=== PATIENT | female | born 1935 | race African-American/Black ===

== ENCOUNTER 2019-07-21 17:57 | Emergency (ER) | payer OTHER ==
[~2019-07-21] VITALS: Ht 162.6 cm; Wt 117.9 kg
--- NOTE | 2019-07-21 19:32 | Diagnostic Imaging Report ---
Examination: PA and lateral view of the chest. COMPARISON: None. INDICATION: Leg swelling DISCUSSION: Lines/tubes: None. Lungs: Pulmonary venous congestion. No pneumonia. Pleura: No pleural effusion or pneumothorax. Heart and mediastinum: The heart and the mediastinum are unremarkable. Bones and soft tissues: No acute bony abnormalities. IMPRESSION: 1. Pulmonary venous congestion Signed by: Dr. Catracho Lo M.D. on 07/21/2019 7:29 PM
[2019-07-21 20:20] LABS: BASOPHILS # (AUTO) 0.1 (0.0-0.1); BASOPHILS % 0.7 % (0.0-1.0); EOSINOPHILS # (AUTO) 0.5 (0.0-0.4); EOSINOPHILS % 3.5 % (0.0-6.0); HEMATOCRIT 35.7 % (34.2-44.1); HEMOGLOBIN 11.7 g/dL (12.0-16.0); LYMPHOCYTES # (AUTO) 2.8 (1.0-3.2); LYMPHOCYTES % 21.8 % (18.0-39.1); MEAN CORPUSCULAR HGB CONC 32.8 g/dL (31-35); MEAN CORPUSCULAR VOLUME 94.4 fL (81-99); MONOCYTES # (AUTO) 1.3 (0.2-0.8); NEUTROPHILS # (AUTO) 8.1 (2.1-6.9); NEUTROPHILS % 63.4 % (38.7-80.0); PLATELET COUNT 400 x10e3/uL (140-360); RED BLOOD COUNT 3.78 x10e6/uL (3.6-5.1); RED CELL DISTRIBUTION WIDTH 13.5 % (11.7-14.4)
--- NOTE | 2019-07-21 20:36 | Emergency Department Note ---
History of Present Illnes History of Present Illness Chief Complaint: General Medicine Complaints History of Present Illness This is a 84 year old female with h/o chf who presents with c/o her legs are more swollen over past week and has pain to her calves, denies sob, denies cough, states she is worried about blood clots . Historian: Patient, Family Member Arrival Mode: Car Onset (how long ago): day(s) (7) Location: bilateral lower extremities Quality: pain, swelling Radiation: non-radiation Severity: moderate Onset quality: gradual Duration (how long): day(s) (7) Progression: worsening Chronicity: chronic Context: recent illness Relieving factors: none Exacerbating factors: none Associated symptoms: denies other symptoms Treatments prior to arrival: none Past Medical/Family History Physician Review I have reviewed the patient's past medical and family history. Any updates have been documented here. Past Medical History Recent Fever: No Clinical Suspicion of Infectio: No New/Unexplained Change in Ment: No Past Medical History: Hypertension, Diabetes, CHF, Cancer, UTI's, Hyperlipedemia Other Medical History: BREAST CANCER [address] Past Surgical History: Tubal Ligation, Mastectomy, Back Surgery Other Surgery: RT BREAST MASTECTOMY ANTERIOR LAMENECTOMY Social History Smoking Cessation: Never Smoker Alcohol Use: None TB Exposure/Symptoms: No Review of Systems Review of Systems Constitutional: no symptoms EENTM: no symptoms Cardiovascular: no symptoms Respiratory: no symptoms Gastrointestinal: no symptoms Genitourinary: no symptoms Musculoskeletal: as per HPI Neurological: no symptoms Psychological: no symptoms Endocrine: no symptoms Hematological/Lymphatic: no symptoms Review of other systems All other systems reviewed and negative. Physical Exam Related Data Allergies: Coded Allergies: iodine (Verified Allergy, Unknown, 07/21/19) lisinopril (Verified Allergy, Unknown, 07/21/19) Triage Vital Signs Vital Signs Date Time Temp Pulse Resp B/P (MAP) Pulse Ox O2 Delivery O2 Flow Rate FiO2 07/21/19 18:31 97.6 85 18 163/68 97 Vital signs reviewed: Yes Physical Exam CONSTITUTIONAL Constitutional: well-developed, well-nourished HENT HENT: normocephalic, atraumatic, oropharynx clear/moist, nose normal HENT L/R: left ext ear normal, right ext ear normal EYES Eyes: PERRL, conjunctivae normal NECK Neck: ROM normal PULMONARY Pulmonary: effort normal, breath sounds normal CARDIOVASCULAR Cardiovascular: regular rhythm, heart sounds normal, capillary refill normal, normal rate GASTROINTESTINAL Abdominal: soft, nontender, bowel sounds normal GENITOURINARY Genitourinary: exam deferred SKIN Skin: warm, dry MUSCULOSKELETAL Musculoskeletal: ROM normal, edema (2+ pitting edema bilateral lower extremities), tenderness (to bilateral calves) NEUROLOGICAL Neurological: alert, oriented x 3, no gross motor or sensory deficits PSYCHOLOGICAL Psychological: mood/affect normal, judgement normal Results Laboratory Result Diagram: 07/21/192007 Laboratory Laboratory Tests Test 07/21/19 20:40 07/21/19 20:08 Prothrombin Time 14.5 seconds (11.9-14.5) Prothromb Time International Ratio 1.06 Activated Partial Thromboplast Time 25.8 seconds (23.8-35.5) Sodium Level 143 mmol/L (136-145) Potassium Level 4.5 mmol/L (3.5-5.1) Chloride Level 103 mmol/L (98-107) Carbon Dioxide Level 24 mmol/L (22-29) Anion Gap 20.5 mmol/L (8-16) Blood Urea Nitrogen 23 mg/dL (7-26) Creatinine 1.16 mg/dL (0.57-1.11) Estimat Glomerular Filtration Rate 54 ML/MIN (60-) BUN/Creatinine Ratio 20 (6-25) Glucose Level 69 mg/dL (74-118) Calcium Level 10.4 mg/dL (8.4-10.2) Total Bilirubin 0.6 mg/dL (0.2-1.2) Aspartate Amino Transf (AST/SGOT) 22 IU/L (5-34) Alanine Aminotransferase (ALT/SGPT) 25 IU/L (0-55) Alkaline Phosphatase 132 IU/L (40-150) Creatine Kinase 143 IU/L (29-168) Creatine Kinase MB 1.10 ng/mL (0-5.0) Troponin I 0.053 ng/mL (0-0.300) Total Protein 9.4 g/dL (6.5-8.1) Albumin 4.1 g/dL (3.5-5.0) Globulin 5.3 g/dL (2.3-3.5) Albumin/Globulin Ratio 0.8 (0.8-2.0) White Blood Count 12.72 x10e3/uL (4.8-10.8) Red Blood Count 3.78 x10e6/uL (3.6-5.1) Hemoglobin 11.7 g/dL (12.0-16.0) Hematocrit 35.7 % (34.2-44.1) Mean Corpuscular Volume 94.4 fL (81-99) Mean Corpuscular Hemoglobin 31.0 pg (28-32) Mean Corpuscular Hemoglobin Concent 32.8 g/dL (31-35) Red Cell Distribution Width 13.5 % (11.7-14.4) Platelet Count 400 x10e3/uL (140-360) Neutrophils (%) (Auto) 63.4 % (38.7-80.0) Lymphocytes (%) (Auto) 21.8 % (18.0-39.1) Monocytes (%) (Auto) 10.0 % (4.4-11.3) Eosinophils (%) (Auto) 3.5 % (0.0-6.0) Basophils (%) (Auto) 0.7 % (0.0-1.0) Neutrophils # (Auto) 8.1 (2.1-6.9) Lymphocytes # (Auto) 2.8 (1.0-3.2) Monocytes # (Auto) 1.3 (0.2-0.8) Eosinophils # (Auto) 0.5 (0.0-0.4) Basophils # (Auto) 0.1 (0.0-0.1) Absolute Immature Granulocyte (auto 0.07 x10e3/uL (0-0.1) B-Type Natriuretic Peptide 38.2 pg/mL (0-100) Laboratory Tests Test 07/21/19 20:08 White Blood Count 12.72 x10e3/uL (4.8-10.8) Red Blood Count 3.78 x10e6/uL (3.6-5.1) Hemoglobin 11.7 g/dL (12.0-16.0) Hematocrit 35.7 % (34.2-44.1) Mean Corpuscular Volume 94.4 fL (81-99) Mean Corpuscular Hemoglobin 31.0 pg (28-32) Mean Corpuscular Hemoglobin Concent 32.8 g/dL (31-35) Red Cell Distribution Width 13.5 % (11.7-14.4) Platelet Count 400 x10e3/uL (140-360) Neutrophils (%) (Auto) 63.4 % (38.7-80.0) Lymphocytes (%) (Auto) 21.8 % (18.0-39.1) Monocytes (%) (Auto) 10.0 % (4.4-11.3) Eosinophils (%) (Auto) 3.5 % (0.0-6.0) Basophils (%) (Auto) 0.7 % (0.0-1.0) Neutrophils # (Auto) 8.1 (2.1-6.9) Lymphocytes # (Auto) 2.8 (1.0-3.2) Monocytes # (Auto) 1.3 (0.2-0.8) Eosinophils # (Auto) 0.5 (0.0-0.4) Basophils # (Auto) 0.1 (0.0-0.1) Absolute Immature Granulocyte (auto 0.07 x10e3/uL (0-0.1) Lab results reviewed: Yes Imaging Imaging results reviewed: Yes Impressions Examination: PA and lateral view of the chest. COMPARISON: None. INDICATION: Leg swelling DISCUSSION: Lines/tubes: None. Lungs: Pulmonary venous congestion. No pneumonia. Pleura: No pleural effusion or pneumothorax. Heart and mediastinum: The heart and the mediastinum are unremarkable. Bones and soft tissues: No acute bony abnormalities. IMPRESSION: 1. Pulmonary venous congestion Signed by: Dr. Catracho Lo M.D. on 07/21/2019 7:29 PM Diagnostics Tests Diagnostic test(s) reviewed: Yes Diagnostic comments venous doppler bilateral lower extremity negative for dvt Procedures 12 Lead ECG Interpretation [place]: Interpreted by ED physician Rhythm: sinus rhythm Rate: normal BPM: 87 QRS axis: normal ST segments normal: Yes T waves normal: Yes Other findings: no other findings Clinical Impression: normal ECG Critical Care Time Subsequent provider I assumed direction of critical care for this patient from another provider of my specialty. Assessment & Plan Assessment & Plan Final Impression: (1) Pedal edema Assessment & Plan pt with increased swelling and pain to lower extremities, cbc, cmp,cxr, venous dopplers ordered to eval for renal insufficiency, pulmonary edema, dvt pt discharged to follow up with pcp compression hose recommended. Last Vital Signs Date Time Temp Pulse Resp B/P (MAP) Pulse Ox O2 Delivery O2 Flow Rate FiO2 07/21/19 18:31 97.6 85 18 163/68 97 Home Meds Reported Medications Insulin Regular, Human (HUMULIN R) 100 Unit/1 Ml Vial, 15 UNITS SQ TIDWM 07/21/19 Insulin Human Nph (HUMULIN N) 100 Units/Ml Ml, 55 UNITS SQ BID 07/21/19 Mirabegron (MYRBETRIQ) 50 Mg Tab.er.24h, 50 MG PO DAILY 07/21/19 Aspirin (ASPIRIN EC) 81 Mg Tablet.dr, 81 MG PO DAILY, #30 TAB 07/21/19 Potassium Chloride* (K DUR*) 10 Meq Tabcr, 20 MEQ PO DAILY 07/21/19 Losartan Potassium (LOSARTAN POTASSIUM) 100 Mg Tablet, 100 MG PO DAILY 07/21/19 Hydralazine Hcl (HYDRALAZINE HCL) 25 Mg Tab, 25 MG PO Q12H 07/21/19 Amlodipine Besylate (AMLODIPINE BESYLATE) 10 Mg Tablet, 10 MG PO DAILY 07/21/19 Atorvastatin Calcium (ATORVASTATIN CALCIUM) 80 Mg Tablet, 80 MG PO HS 07/21/19 Furosemide (FUROSEMIDE) 20 Mg Tablet, 40 MG PO DAILY 07/21/19 DUKE TOMLIN MD July 21, 2019 20:36
[2019-07-21 21:04] LABS: INR 1.06; PROTHROMBIN TIME 14.5 seconds (11.9-14.5)
[2019-07-21 21:05] LABS: PARTIAL THROMBOPLASTIN TIME 25.8 seconds (23.8-35.5)
[2019-07-21 21:14] LABS: ALBUMIN 4.1 g/dL (3.5-5.0); ALBUMIN/GLOBULIN RATIO 0.8 (0.8-2.0); ANION GAP 20.5 mmol/L (8-16); CALCIUM 10.4 mg/dL (8.4-10.2); CREATININE, SERUM 1.16 mg/dL (0.57-1.11); POTASSIUM 4.5 mmol/L (3.5-5.1)
[2019-07-21] MEDS ORDERED: K DUR10 MEQ PO (21:17)
[2019-07-21] MEDS ORDERED: ASPIRIN EC81 MG PO (21:17)
[2019-07-21] MEDS ORDERED: HUMULIN R100 UNIT/2 SQ (21:17)
[2019-07-21] MEDS ORDERED: MYRBETRIQ50 MG PO (21:17)
[2019-07-21] MEDS ORDERED: ATORVASTATIN CA80 MG PO (21:17)
[2019-07-21] MEDS ORDERED: AMLODIPINE BESY10 MG PO (21:17)
[2019-07-21] MEDS ORDERED: FUROSEMIDE20 MG PO (21:17)
[2019-07-21] MEDS ORDERED: HUMULIN N100 UNITS/ SQ (21:17)
[2019-07-21] MEDS ORDERED: LOSARTAN POTAS100 MG PO (21:17)
[2019-07-21] MEDS ORDERED: HYDRALAZINE HCL25 MG PO (21:17)
[2019-07-21 21:23] LABS: CREATINE KINASE MB 1.1 ng/mL (0-5.0)
[2019-07-21 22:05] VITALS: BP 150/65
== END 2019-07-21 22:11 | disposition home or self-care (01) ==
LOC: ER 17:57
DX: R60.9 Edema, unspecified (principal); R09.89 Other specified symptoms and signs involving the circulatory and respiratory systems; E78.5 Hyperlipidemia, unspecified; Z85.3 Personal history of malignant neoplasm of breast
CPT/HCPCS: 36415; 71046; 80053; 82550; 82553; 83880; 84484; 85025; 85610; 85730; 93005; 93970; 99284

== ENCOUNTER 2020-11-05 00:01 | Emergency (ER) | payer MEDICARE ==
[~2020-11-05] VITALS: Ht 162.6 cm; Wt 117.9 kg
[~2020-11-05 00:01] MED LIST: AMLODIPINE BESY10 MG PO; ASPIRIN EC81 MG PO; ATORVASTATIN CA80 MG PO; FUROSEMIDE20 MG PO; HUMULIN N100 UNITS/ SQ; HUMULIN R100 UNIT/2 SQ; HYDRALAZINE HCL25 MG PO; K DUR10 MEQ PO; LOSARTAN POTAS100 MG PO; MYRBETRIQ50 MG PO
[2020-11-05] MEDS ORDERED: HYDRALAZINE HCL 20 MG/ML VIAL IV STA (00:35)
[2020-11-05] MEDS ORDERED: HYDRALAZINE HCL 25 MG TAB PO ONE (01:30)
[2020-11-05 01:43] LABS: BASOPHILS # (AUTO) 0.1 (0.0-0.1); BASOPHILS % 0.6 % (0.0-1.0); EOSINOPHILS # (AUTO) 0.5 (0.0-0.4); EOSINOPHILS % 2.9 % (0.0-6.0); HEMATOCRIT 28.6 % (34.2-44.1); HEMOGLOBIN 9.2 g/dL (12.0-16.0); LYMPHOCYTES # (AUTO) 0.9 (1.0-3.2); LYMPHOCYTES % 5.8 % (18.0-39.1); MEAN CORPUSCULAR HEMOGLOBIN 30.2 pg (28-32); MEAN CORPUSCULAR HGB CONC 32.2 g/dL (31-35); MEAN CORPUSCULAR VOLUME 93.8 fL (81-99); MONOCYTES # (AUTO) 0.8 (0.2-0.8); MONOCYTES % 4.8 % (4.4-11.3); NEUTROPHILS # (AUTO) 13.3 (2.1-6.9); NEUTROPHILS % 84.2 % (38.7-80.0); PLATELET COUNT 383 x10e3/uL (140-360); RED BLOOD COUNT 3.05 x10e6/uL (3.6-5.1); RED CELL DISTRIBUTION WIDTH 15.9 % (11.7-14.4)
[2020-11-05 01:51] LABS: INR 1.2; PARTIAL THROMBOPLASTIN TIME 30.5 seconds (23.8-35.5); PROTHROMBIN TIME 15.5 seconds (11.9-14.5)
[2020-11-05 02:01] LABS: ALBUMIN 3.2 g/dL (3.5-5.0); ALBUMIN/GLOBULIN RATIO 0.8 (0.8-2.0); ANION GAP 17.2 mmol/L (8-16); CREATININE, SERUM 0.85 mg/dL (0.57-1.11); POTASSIUM 4.2 mmol/L (3.5-5.1)
[2020-11-05 02:07] LABS: CREATINE KINASE MB 0.6 ng/mL (0-5.0)
== END 2020-11-05 02:46 | disposition left against medical advice (07) ==
LOC: ER 00:03
DX: I16.0 Hypertensive urgency (principal); R51.9 Headache, unspecified; I10 Essential (primary) hypertension; E11.9 Type 2 diabetes mellitus without complications; I50.9 Heart failure, unspecified; E78.5 Hyperlipidemia, unspecified; E66.01 Morbid (severe) obesity due to excess calories; R94.31 Abnormal electrocardiogram [ECG] [EKG]; Z86.73 Personal history of transient ischemic attack (TIA), and cerebral infarction without residual deficits; Z85.3 Personal history of malignant neoplasm of breast
CPT/HCPCS: 36415; 70450; 71045; 80053; 82550; 82553; 83880; 84484; 85025; 85610; 85730; 93005; 99284